=== PATIENT | male | born 1955 | race Caucasian/White ===

== ENCOUNTER → 2022-08-10 12:15 | Outpatient (CLI) | payer MEDICARE, SELFPAY ==
--- NOTE | 2022-08-10 | DI.MRI.S_ITS ---
PROCEDURE: MR SHOULDER RT WO CON INDICATIONS: ROTATOR CUFF SYNDROME OF RT SHOULDER TECHNIQUE: Noncontrast oblique coronal T2 fast spin echo with fat saturation, oblique sagittal T1 spin echo and T2 fast spin echo with fat saturation, axial T1 spin echo and T2 fast spin echo with fat saturation through the shoulder. COMPARISON: None. FINDINGS: Image quality: Excellent. Rotator cuff: Moderate grade articular and bursal surface partial thickness tear involving distal supraspinatus at its insertion on the humeral head is seen extending to musculotendinous junction. Low to moderate grade articular surface partial-thickness tear involving distal infraspinatus is also noted. Low-grade intrasubstance partial-thickness tear is seen in distal subscapularis. No full-thickness rotator cuff tendon rupture. Sagittal images demonstrate no significant rotator cuff muscle atrophy. Bones and bursae: No bone marrow contusions or fractures. Moderate acromioclavicular joint osteoarthritic changes are seen with joint space narrowing and downward osteophyte formation depressing the musculotendinous junction of supraspinatus. Nonspecific subcortical cystic area are seen in posterior aspect of humeral head near distal rotator cuff tendon insertion. There is small to moderate amount of subacromial subdeltoid bursal fluid. No gross loose bodies. Capsule and soft tissues: Signal abnormality and contour irregularity involving superior anterior labrum at 12 to 1 o'clock position is seen suggestive of superior anterior labral tear. There is also signal abnormality and contour irregularity involving inferior labrum at 5 to 6 o'clock position. The long head of the biceps tendon demonstrates normal location and morphology. The rotator interval appears normal, without fibrosis. The coracohumeral ligament is normal in thickness. IMPRESSION: 1. Moderate grade articular and bursal surface partial thickness tear involving distal supraspinatus extending to musculotendinous junction. Low to moderate grade articular surface partial-thickness tear involving distal infraspinatus. Low-grade intrasubstance partial-thickness tear involving distal subscapularis. No full-thickness rotator cuff tendon rupture. No significant muscle atrophy. 2. Moderate acromioclavicular joint osteoarthritis. No fracture or dislocation. Small to moderate amount of subacromial subdeltoid bursal fluid. No gross loose bodies. 3. Suggestion of superior anterior labral tear at 12 to 1 o'clock position. 4. Suggestion of anterior-inferior labral tear at 5 to 6 o'clock position. Dictated by: Dayo Palomino M.D. on 08/10/2022 at 15:39 Approved by: Dayo Palomino M.D. on 08/10/2022 at 15:41
== END ==
PROVIDERS: Referring Provider Orthopaedic Surgery; Visit Provider Orthopaedic Surgery
DX: M75.111 Incomplete rotator cuff tear or rupture of right shoulder, not specified as traumatic (principal); M19.011 Primary osteoarthritis, right shoulder
CPT/HCPCS: 73221

== ENCOUNTER → 2023-11-19 13:44 | Outpatient (CLI) | payer MEDICARE, SELFPAY ==
--- NOTE | 2023-11-19 | DI.MRI.S_ITS ---
PROCEDURE: MR SHOULDER LT WO CON INDICATIONS: Impingement syndrome of left shoulder TECHNIQUE: Noncontrast oblique coronal T2 fast spin echo with fat saturation, oblique sagittal T1 spin echo and T2 fast spin echo with fat saturation, axial T1 spin echo and T2 fast spin echo with fat saturation through the shoulder. COMPARISON: MR, MR SHOULDER LEFT WITHOUT CONTRAST, 08/09/2019, 17:42. FINDINGS: Image quality: Excellent. Rotator cuff: There is intermediate grade partial-thickness tear of the distal supraspinatus and infraspinatus tendons involving articular and bursal surfaces, as well as pleural print. No tendon retraction or muscle atrophy. There is mild subscapularis tendinosis. Bones and bursae: No bone marrow contusions or fractures. Mild acromioclavicular and glenohumeral joint degeneration. The acromion demonstrates conventional anatomy, without an os acromiale. Small subacromial-subdeltoid and subcoracoid bursal fluid suggesting mild bursitis. Capsule and soft tissues: There is posterior inferior labral tear with small paralabral cysts. There is SLAP lesion at the biceps anchor. There is mild tendinosis of the long head of the biceps tendon which demonstrates normal location and morphology. The rotator interval appears normal, without fibrosis. The coracohumeral ligament is normal in thickness. IMPRESSION: 1. Intermediate grade partial-thickness tear of the supraspinatus and infraspinatus tendons. No tendon retraction or muscle atrophy. 2. Mild acromioclavicular and glenohumeral joint degeneration. 3. Small subacromial-subdeltoid and subcoracoid bursal fluid, suspicious for mild bursitis. 4. Posterior inferior labral tear with paralabral cyst. 5. SLAP lesion at the biceps anchor. 6. Mild osteoarthritic changes at the acromioclavicular and glenohumeral joint. Dictated by: Connor Minaya M.D. on 11/20/2023 at 9:51 Approved by: Connor Minaya M.D. on 11/20/2023 at 22:10
== END ==
PROVIDERS: PCP Family Medicine; Referring Provider Orthopaedic Surgery; Visit Provider Orthopaedic Surgery
DX: M75.42 Impingement syndrome of left shoulder (principal); M75.112 Incomplete rotator cuff tear or rupture of left shoulder, not specified as traumatic; M19.012 Primary osteoarthritis, left shoulder; S43.432A Superior glenoid labrum lesion of left shoulder, initial encounter
CPT/HCPCS: 73221

== ENCOUNTER → 2024-07-19 09:43 | Outpatient (CLI) | payer MEDICARE, SELFPAY ==
--- NOTE | 2024-07-19 09:45 | DI.RAD.S_ITS ---
PROCEDURE: FL ARTHROGRAM SHOULDER LT INDICATIONS: ROTATOR CUFF TEAR LT SHLD COMPARISON: None. TECHNIQUE: The indications, alternatives, benefits, risks, and complications of the procedure were explained to the patient. Written informed consent was obtained and placed in the chart. The shoulder was examined fluoroscopically and a site for needle placement chosen for entry into the glenohumeral joint from an anterior approach. The skin was prepped and draped in a sterile fashion, and 1% lidocaine infiltrated from skin down to joint capsule. A spinal needle was inserted into the glenohumeral joint, and a small amount of iodinated contrast media injected to confirm intra-articular placement of the needle tip. This was followed by approximately 12 mL dilute solution of a gadolinium containing MR contrast agent. The needle was removed and a dressing was applied. The patient was given postprocedural instructions and sent to the MR suite for MR imaging. FINDINGS: A single fluoroscopic spot image demonstrates intra-articular location of injected iodinated contrast. IMPRESSION: Successful fluoroscopically guided administration of dilute Gadolinium solution into the shoulder joint for MR arthrogram. Dictated by: Vega Stanton M.D. on 07/19/2024 at 13:31 Approved by: Vega Stanton M.D. on 07/19/2024 at 13:32
--- NOTE | 2024-07-19 09:45 | DI.MRI.S_ITS ---
PROCEDURE: MR SHOULDER LT W CON INDICATIONS: ROTATOR CUFF TEAR LT SHLD TECHNIQUE: After the administration of 12 mL of dilute intra-articular Gadolinium contrast, oblique coronal T1 and T2 spin echo with fat saturation, oblique sagittal T1 spin echo with and without fat saturation, oblique sagittal T2 fast spin echo with fat saturation, axial T1 spin echo with fat saturation through the shoulder. COMPARISON: [facility], MR, MR SHOULDER LT WO CON, 11/19/2023, 13:56. FINDINGS: Image quality: Excellent. Rotator cuff: There is moderate T2 signal elevation diffusely throughout the supraspinatus and infraspinatus tendons at the humeral insertion sites extending the musculotendinous junction. Within the posterior supraspinatus tendon at the humeral insertion site. There is an artificial solidity of coal focus measuring roughly 15 mm craniocaudal. There is low-grade intrasubstance tearing of the mid supraspinatus tendon at the humeral insertion site extending to the musculotendinous junction. Subscapularis, infraspinatus, and teres minor tendons are intact. Bones and bursae: Tendon anchors within the humeral head. No bone marrow contusions or fractures. Mild glenohumeral and acromioclavicular joint degeneration. The acromion demonstrates conventional anatomy, without an os acromiale. Capsule and soft tissues: Previously seen labral tears are no longer seen. The long head of the biceps tendon demonstrates normal location and morphology. The rotator interval appears normal, without fibrosis. The coracohumeral ligament is of normal thickness. No intra-articular bodies. IMPRESSION: 1. Postsurgical sequelae. 2. Indeterminate cylindrical device within the supraspinatus tendon. Correlation with surgical history recommended. 3. Low-grade tearing of the supraspinatus tendon. No full-thickness rotator cuff tear. Dictated by: Lilia Olmstead M.D. on 07/19/2024 at 11:20 Approved by: Lilia Olmstead M.D. on 07/19/2024 at 11:24
[2024-07-19] MEDS: LIDOCAINE 1% 20 ML INJ (10:50)
[2024-07-19] MEDS: SODIUM CHLORIDE 0.9 % 20 ML VIAL IV (10:51)
== END ==
LOC: RAD 09:44
PROVIDERS: PCP Family Medicine; Referring Provider Orthopaedic Surgery; Visit Provider Orthopaedic Surgery
DX: M75.112 Incomplete rotator cuff tear or rupture of left shoulder, not specified as traumatic (principal)
CPT/HCPCS: 23350; 73040; 73222; A9579; Q9967